=== PATIENT | female | born 1985 | race African-American/Black ===

== ENCOUNTER 2017-03-27 12:05 | Emergency (ER) | payer OTHER ==
[~2017-03-27] VITALS: Ht 165.1 cm; Wt 99.8 kg
--- NOTE | ~2017-03-27 | EKG ---
[place] [id number] [facility] [place] [address] ELECTROCARDIOGRAM REPORT Name: ADRIANA MENJIVAR Room #: [facility] Manjeet#: [id number] Admission: 03/27/17 Attend Phys: Discharge: 03/27/17 Date of : 81 Report #: [id number] THIS REPORT FOR: //name// [facility] ED Test Date: 2017-03-27 Test Time: 12:55:46 Pat Name: ADRIANA MENJIVAR Department: Room: Gender: F [employer] Cleaner: [id number] : 1985 Requested By: Benjamin Vick Order Number: [id number] MD: Angelo Thomas Measurements Intervals Grant Rate: 64 P: 30 HI: 180 QRS: 0 QRSD: 85 T: 89 QT: 420 QTc: 434 Interpretive Statements Sinus rhythm Poor R wave progression No previous ECG available for comparison Electronically Signed On 03-30-2017 8:07:28 CDT by Angelo Thomas [email or web address] <ELECTRONICALLY SIGNED> By: Angelo Thomas MD, [facility] 03/30/17 0807 1255 1255 Angelo Thomas MD, FACC /EPI
[~2017-03-27 12:05] MED LIST: AMITRIPTYLINE H10 M1; EX-LAX5 MG; FLEXERIL PO; IBUPROFEN 600600 M1 PO; LISINOPRIL10 MG PO; NORCO 5-325 TA1 EACH PO; PHENERGAN 25 MG25 MG PO; ZANTAC 150MG T150 M1 PO; ZOLOFT25 MG
[2017-03-27 12:52] LABS: ABSOLUTE NEUTROPHILS 3.3 thou/uL (1.4-8.2); BASOPHILS 1.1 % (0.0-2.0); EOSINOPHILS 4.5 % (0.0-3.0); HEMATOCRIT 39.7 % (37.0-47.0); HEMOGLOBIN 13.4 gm/dL (12.0-15.0); MCH 29.5 pg (26.0-34.0); MCHC 33.9 g/dL (28.0-37.0); MCV 87.1 fL (80.0-100.0); MONOCYTES 5.3 % (1.0-8.0); PLATELET COUNT 191 thou/uL (150-400); POLYS 55.1 % (36.0-66.0); RBC 4.55 mil/uL (4.20-5.00); RDW 14.3 % (10.5-14.5); WBC 6.1 thou/uL (4.0-11.0)
[2017-03-27 12:54] LABS: MANUAL DIFF NO
[2017-03-27 12:57] LABS: ANION GAP 11 mmol/L (7-16); BUN 14 mg/dL (7-18); CALCIUM 9.3 mg/dL (8.5-10.1); CHLORIDE 103 mmol/L (98-107); CO2 25 mmol/L (21-32); CREATININE 1.3 mg/dL (0.6-1.0); GLUCOSE 119 mg/dL (74-106); POTASSIUM 3.4 mmol/L (3.5-5.1); SODIUM 139 mmol/L (136-145)
[2017-03-27 13:06] LABS: TROPONIN-I < 0.04 ng/mL (<0.04-0.07)
[2017-03-27] MEDS ORDERED: LISINOPRIL5 MG PO (14:40)
[2017-03-27 16:56] VITALS: BP 198/145
== END 2017-03-27 16:58 | disposition home or self-care (01) ==
LOC: ER 12:05
PROVIDERS: Nurse Practitioner
DX: R51 Headache (principal); I10 Essential (primary) hypertension; E66.9 Obesity, unspecified; Z88.2 Allergy status to sulfonamides